=== PATIENT | male | born 1960 | race Caucasian/White ===

== ENCOUNTER 2018-07-23 08:35 | Emergency (ER) | payer MEDICAID ==
[~2018-07-23] VITALS: Ht 172.7 cm; Wt 86.4 kg
[~2018-07-23 08:35] MED LIST: PRED10TA PO
[2018-07-23 08:39] VITALS: BP 129/69
[2018-07-23] MEDS ORDERED: LIDOcaine 1% 30ml preserv. free vial IJ ONE (08:50)
[2018-07-23] MEDS ORDERED: SULF1TAB49 PO (09:29)
[2018-07-23] MEDS ORDERED: CEPH-572 PO (09:29)
== END 2018-07-23 09:38 | disposition home or self-care (01) ==
LOC: ER 08:35
DX: L02.416 Cutaneous abscess of left lower limb (principal); L03.116 Cellulitis of left lower limb; Z79.899 Other long term (current) drug therapy
CPT/HCPCS: 10060; 99283; J3490

== ENCOUNTER 2018-08-04 11:08 | Emergency (ER) | payer MEDICAID ==
[~2018-08-04] VITALS: Ht 172.7 cm; Wt 87.3 kg
[~2018-08-04 11:08] MED LIST changes: +PRED20TA PO
[2018-08-04 11:15] VITALS: BP 116/67
[2018-08-04] MEDS ORDERED: triamcinolone acetonide 40mg/ml inj IM ONE (11:35)
[2018-08-04] MEDS ORDERED: TRIA15CR61 TOP (11:35)
[2018-08-04] MEDS ORDERED: PRED20TA PO (11:35)
== END 2018-08-04 11:48 | disposition home or self-care (01) ==
LOC: ER 11:08
DX: L23.7 Allergic contact dermatitis due to plants, except food (principal); Z79.899 Other long term (current) drug therapy
CPT/HCPCS: 96372; 99283; J3301

== ENCOUNTER 2018-10-06 10:47 | Emergency (ER) | payer MEDICAID ==
[~2018-10-06] VITALS: Ht 170.2 cm; Wt 82.5 kg
[~2018-10-06 10:47] MED LIST changes: -PRED20TA PO
[2018-10-06 10:50] VITALS: BP 144/88
[2018-10-06] MEDS ORDERED: LORA-269 PO (11:00)
[2018-10-06] MEDS ORDERED: GABA300C PO (11:00)
== END 2018-10-06 11:15 | disposition home or self-care (01) ==
LOC: ER 10:48
DX: F10.10 Alcohol abuse, uncomplicated (principal); F15.10 Other stimulant abuse, uncomplicated; Z79.899 Other long term (current) drug therapy; Z87.891 Personal history of nicotine dependence; Y90.9 Presence of alcohol in blood, level not specified
CPT/HCPCS: 99283

== ENCOUNTER 2018-11-24 17:53 | Emergency (ER) | payer MEDICAID ==
[~2018-11-24] VITALS: Ht 170.2 cm; Wt 84.1 kg
[~2018-11-24 17:53] MED LIST changes: +GABA300C PO; +LORA-269 PO
[2018-11-24 17:57] VITALS: BP 123/88
[2018-11-24] MEDS ORDERED: acetaminophen 325mg tablet PO ONE (18:25)
[2018-11-24] MEDS ORDERED: TAM75C PO (18:26)
== END 2018-11-24 18:42 | disposition home or self-care (01) ==
LOC: ER 17:53
DX: J11.1 Influenza due to unidentified influenza virus with other respiratory manifestations (principal); Z87.891 Personal history of nicotine dependence; Z79.899 Other long term (current) drug therapy
CPT/HCPCS: 99283

== ENCOUNTER 2018-11-25 12:29 | Emergency (ER) | payer MEDICAID ==
[~2018-11-25] VITALS: Ht 170.2 cm; Wt 85.5 kg
[~2018-11-25 12:29] MED LIST changes: +TAM75C PO
[2018-11-25 12:43] VITALS: BP 112/71
--- NOTE | 2018-11-25 14:14 | NUR ---
PATIENT WAS HERE YESTERDAY FOR FLU LIKE SYMPTOMS AND STARTED ON TAMIFLU. PATIENT WAS ASKED TO PUT HIS MASK BACK ON WEAR THRUOUT HIS HOSPITAL STAY. PT C/O ACHES, ONEILL, SLIGHT NAUSEA. "I THINK I HAVE FOOD POISONING BECAUSE I ATE SOME ROTTEN PEARS." THE PEARS WERE NOT IN A CAN. PATIENT HAS NOT HAD ANY VOMITING OR DIARRHEA. LUNGS CLEAR
[2018-11-25] MEDS ORDERED: ibuprofen tablet 400 MG TABLET PO ONE (14:20)
--- NOTE | 2018-11-25 14:21 | NUR ---
PATIENT PROVIDED PITCHER OF ICE WATER
--- NOTE | 2018-11-25 14:24 | NUR ---
PATIENT PROVIDED SACK LUNCH
== END 2018-11-25 14:57 | disposition home or self-care (01) ==
LOC: ER 12:30
DX: B34.9 Viral infection, unspecified (principal); Z79.899 Other long term (current) drug therapy
CPT/HCPCS: 99282

== ENCOUNTER 2020-02-18 10:44 | Emergency (ER) | payer MEDICAID ==
[~2020-02-18] VITALS: Ht 170.2 cm; Wt 81.8 kg
[~2020-02-18 10:44] MED LIST changes: -TAM75C PO
[2020-02-18 10:48] VITALS: BP 127/77
[2020-02-18] MEDS ORDERED: MECL-159 PO (11:31)
== END 2020-02-18 12:07 | disposition home or self-care (01) ==
LOC: ER 10:45
DX: U07.1 COVID-19 (principal); R42 Dizziness and giddiness
CPT/HCPCS: 93005; 99283

== ENCOUNTER 2020-03-24 14:35 | Outpatient (CLI) | payer MEDICAID ==
[~2020-03-24 14:35] MED LIST changes: +MECL-159 PO
== END 2020-03-24 23:59 | disposition home or self-care (01) ==
LOC: VAS 14:35
PROVIDERS: ATTEND Family Medicine
DX: I65.23 Occlusion and stenosis of bilateral carotid arteries (principal)
CPT/HCPCS: 93880

== ENCOUNTER 2020-04-20 09:43 | Outpatient (CLI) | payer MEDICAID | END 2020-04-20 23:59 | disposition home or self-care (01) | LOC: RT 09:43 | PROVIDERS: ATTEND Family Medicine | DX: R94.2 Abnormal results of pulmonary function studies (principal); R06.00 Dyspnea, unspecified | CPT/HCPCS: 94060; 94760 ==

== ENCOUNTER 2020-10-30 08:45 | Emergency (ER) | payer MEDICAID ==
[~2020-10-30] VITALS: Ht 170.2 cm; Wt 81.8 kg
[2020-10-30 09:33] VITALS: BP 133/83
[2020-10-30] MEDS ORDERED: triamcinolone acetonide 40mg/ml inj IM ONE (09:50)
== END 2020-10-30 10:40 | disposition home or self-care (01) ==
LOC: ER 08:45
DX: L23.7 Allergic contact dermatitis due to plants, except food (principal); Z79.899 Other long term (current) drug therapy; Z72.89 Other problems related to lifestyle
CPT/HCPCS: 96372; 99283; J3301